=== PATIENT | female | born 1995 | race Two or more races ===

== ENCOUNTER → 2023-07-02 07:41 | Outpatient (REF) | payer BC, SELFPAY | LOC: PNTC 07:41 | PROVIDERS: ATTENDING PHYSICIAN Obstetrics & Gynecology | DX: O09.819 Supervision of pregnancy resulting from assisted reproductive technology, unspecified trimester (principal) | CPT/HCPCS: 59025; 76815 ==

== ENCOUNTER → 2023-07-09 07:22 | Outpatient (REF) | payer BC, SELFPAY | LOC: PNTC 07:22 | PROVIDERS: ATTENDING PHYSICIAN Obstetrics & Gynecology | DX: O09.819 Supervision of pregnancy resulting from assisted reproductive technology, unspecified trimester (principal) | CPT/HCPCS: 59025; 76815 ==

== ENCOUNTER → 2023-07-16 07:16 | Outpatient (REF) | payer BC, SELFPAY | LOC: PNTC 07:16 | PROVIDERS: ATTENDING PHYSICIAN Obstetrics & Gynecology | DX: O09.819 Supervision of pregnancy resulting from assisted reproductive technology, unspecified trimester (principal) | CPT/HCPCS: 59025; 76816 ==

== ENCOUNTER 2023-07-23 22:00 | Inpatient (IN) | payer BC, SELFPAY ==
[2023-07-23] MEDS: LR 1000 IV (22:30)
[2023-07-23 22:37] VITALS: BP 129/88; BMI 29.2
[2023-07-23 22:47] LABS: % Basophils 0.2 % (0-2); % Eosinophils 0.3 % (0-6); % Immature Granulocytes 0.6 % (0-0.5); % Lymphocytes 15.4 % (20.5-51.1); % Monocytes 6.8 % (1.7-9.3); % Neutrophils 76.7 % (42.2-75.2); Absolute Immature Granulocytes 0.1 10^3/uL (0-0.05); Absolute Lymphocytes 1.5 10^3/uL (1.2-3.4); Absolute Monocytes 0.7 10^3/uL (0.1-0.6); Absolute Neutrophils 7.7 10^3/uL (1.4-6.5); Hematocrit 31.2 % (37.0-47.0); Hemoglobin 10.9 g/dL (12.0-16.0); Mean Corp Hgb Conc. 34.9 g/dL (33.0-37.0); Mean Corpuscular Hgb 29.8 pg (27.0-31.0); Mean Corpuscular Volume 85.2 fL (81.0-99.0); Mean Platelet Volume 11.2 fL (7.4-10.4); Nucleated Red Blood Cells % 0 %; Platelet Count 236 10^3/uL (130-400); Red Blood Cell Count 3.66 10^6/uL (4.20-5.40); Red Cell Dist. Width 13.3 % (11.5-14.5)
[2023-07-23] MEDS: SUBLIMAZE 100 MCG EPIDURAL (23:12)
[2023-07-23] MEDS: FENTANYL/BUPIVACAINE 100 EPIDURAL (23:12)
[2023-07-24] MEDS: SYNTHROID 100 MCG PO (08:04)
[2023-07-24] MEDS: MOTRIN 600 MG PO (23:20)
[2023-07-24] MEDS: TYLENOL 650 MG PO (23:20)
[2023-07-25] MEDS: SYNTHROID 100 MCG PO (05:43)
[2023-07-25] MEDS: TYLENOL 650 MG PO (06:27)
[2023-07-25] MEDS: MOTRIN 600 MG PO ×2 (06:27→13:07)
[2023-07-25 06:35] LABS: Hemoglobin 10.2 g/dL (12.0-16.0)
[2023-07-26] MEDS: SYNTHROID 100 MCG PO (06:19)
[2023-07-27 16:30] LABS: Syphilis/T. pallidum Ab Reflex Negative (Negative)
== END 2023-07-26 15:34 | disposition home or self-care (01) | DRG 807 ==
LOC: LDRP 22:00
PROVIDERS: ADMITTING PHYSICIAN Obstetrics & Gynecology
PROC: 10E0XZZ Delivery of Products of Conception, External Approach (ICD-10-PCS; 2023-07-24)
PROC: 0HQ9XZZ Repair Perineum Skin, External Approach (ICD-10-PCS; 2023-07-24)
DX: O70.0 First degree perineal laceration during delivery (principal); Z37.0 Single live birth; Z3A.39 39 weeks gestation of pregnancy; O35.EXX0 Maternal care for other (suspected) fetal abnormality and damage, fetal genitourinary anomalies, not applicable or unspecified
CPT/HCPCS: 36415; 59025; 76815; 85014; 85018; 85025; 86780; 86850; 86900; 86901